=== PATIENT | female | born 1965 | race Caucasian/White ===

== ENCOUNTER 2017-04-30 17:18 | Emergency (ER) | payer BC ==
[2017-04-30 17:25] VITALS: BP 152/95
--- NOTE | 2017-04-30 18:21 | UC ---
Lower Extremity/Ankle HPI - HPI Summary HPI Summary: 51 y/o female with 2 week h/o inner ankle pain, no trauma/ injury, patient states started after wearing sisters shoes with ankle straps. NO prior injury / surgery on ankle. Patient states able to walk without difficulty, however increased pain after walking/ standing longer distances/ time. Swelling/ "bump " noted. meds- on eHTN med, has been using naproxyn intermittently for pain. no other symptoms, no calf pain. - History of Current Complaint Chief Complaint: UCLowerExtremity Stated Complaint: ANKLE PAIN Time Seen by Provider: 04/30/17 17:55 Hx Obtained From: Patient Hx Last Menstrual Period: 2 weeks ago ?: Yes Onset/Duration: Sudden Onset, Lasting Weeks, Still Present Severity Initially: Mild Severity Currently: Mild - Allergies/Home Medications Allergies/Adverse Reactions: Allergies Allergy/AdvReac Type Severity Reaction Status Date / Time No Known Allergies Allergy Verified 04/30/17 17:25 PMH/Surg Hx/FS Hx/Imm Hx Previously Healthy: Yes - Surgical History Surgical History: Yes Surgery Procedure, Year, and Place: left knee surgery x3. oral surgery - Social History Alcohol Use: Weekly Alcohol Amount: a couple times a week Substance Use Type: Marijuana Substance Use Comment - Amount & Last Used: a couple times a week Smoking Status (MU): Never Smoked Tobacco Review of Systems Musculoskeletal: Arthralgia - r inner ankle, Edema - R inner ankle All Other Systems Reviewed And Are Negative: Yes Physical Exam Triage Information Reviewed: Yes Appearance: Well-Appearing, No Pain Distress, Well-Nourished Vital Signs: Initial Vital Signs Temp 98.2 F 04/30/17 17:21 Pulse 73 04/30/17 17:21 Resp 16 04/30/17 17:21 BP 152/95 04/30/17 17:21 Pulse Ox 100 04/30/17 17:21 Vital Signs Reviewed: Yes Musculoskeletal: Positive: Strength Intact - R ankle 5/5, ROM Intact - R ankle, toes, Edema @ - mild over anterior medial malleolus, tender to touch, no mass palpable. PT, DP 2+ b/l, sensation grossly intact b/l. Neurological Exam: Normal Lower Extremity Course/Dx - Course Course Of Treatment: radiograph- neg for fracture, + OA. Follow up with ortho if no improvement after tx with NSAIDs. supportive shoes. - Differential Dx/Diagnosis Differential Diagnosis/HQI/PQRI: Contusion, Fracture (Closed), Infection, Sprain , Strain Provider Diagnoses: ankle osteoarthritis Discharge - Discharge Plan Condition: Stable Disposition: HOME Patient Education Materials: Osteoarthritis (ED) Referrals: Corinne Chin MD [Primary Care Provider] - Roderick Mcnulty MD [Medical Doctor] - Additional Instructions: - Anti-inflammatories- Motrin, Alleve for 1-2 weeks to decrease swelling, inflammation, pain - Supportive shoes, especially when walking on uneven ground - Follow up with ankle specialist if no improvement within 2-3 days
--- NOTE | 2017-04-30 18:22 | RAD ---
Indication: Medial RIGHT ankle pain and swelling without proceeding injury. Comparison: No relevant prior exams available on the [facility] [place] PACS for comparison. Technique: AP, mortise, and lateral views RIGHT ankle. Report: Normal articular alignment. Negative for fracture or osteochondral lesion. Mild talocrural joint osteophytosis without significant joint space narrowing. Moderate plantar fascia origin bone spur. Soft tissue swelling most prominent over the medial malleolus. IMPRESSION: Mild osteoarthritis. Moderate plantar fascia origin bone spur.
== END 2017-04-30 18:57 | disposition home or self-care (01) ==
LOC: UCEAST 17:18
DX: M19.071 Primary osteoarthritis, right ankle and foot (principal)
CPT/HCPCS: 99211; G0463